=== PATIENT | female | born 1990 ===

== ENCOUNTER 2021-01-29 17:22 | Emergency (ER) | payer SELFPAY ==
--- NOTE | 2021-01-29 18:41 | Emergency Department Report ---
ED Burn/Smoke HPI - General Chief complaint: Burn/Smoke Inhalation Stated complaint: BURNED LT HAND Time Seen by Provider: 01/29/21 18:08 Source: patient Mode of arrival: Ambulatory Limitations: No Limitations - History of Present Illness Initial comments: 30-year-old female presents to the emergency room stating she has a left hand burn after grabbing a curling iron the wrong way. Patient states this happened about 4 PM. Patient reports immediately she ran it through cold water. She states that the pain is better when she keeps it in cold water. Patient reports she is up-to-date on all vaccines. Patient denies any past medical history. Complaint: burn -: This afternoon Time: 16:00 Type of Exposure: electrical (Curling iron) Place: outdoors (At work) Location - Extremities: Left: Hand Severity scale (0 -10): 7 Associated Symptoms: denies other symptoms - Related Data Previous Rx's Medication Instructions Recorded Last Taken Type Acetaminophen/Codeine [Tylenol 1 tab PO Q6H PRN #15 tab 01/29/21 Unknown Rx /Codeine # 3 tab] Ibuprofen [Motrin 800 MG tab] 800 mg PO Q8HR PRN #30 tablet 01/29/21 Unknown Rx Allergies Allergy/AdvReac Type Severity Reaction Status Date / Time No Known Allergies Allergy Unverified 01/29/21 17:39 Burn HPI - History Stated Complaint: BURNED LT HAND Chief Complaint: Burn/Smoke Inhalation Time Seen by Provider: 01/29/21 18:08 - Home Meds and Allergies Home Medications: Previous Rx's Medication Instructions Recorded Last Taken Type Acetaminophen/Codeine [Tylenol 1 tab PO Q6H PRN #15 tab 01/29/21 Unknown Rx /Codeine # 3 tab] Ibuprofen [Motrin 800 MG tab] 800 mg PO Q8HR PRN #30 tablet 01/29/21 Unknown Rx Allergies/Adverse Reactions: Allergies Allergy/AdvReac Type Severity Reaction Status Date / Time No Known Allergies Allergy Unverified 01/29/21 17:39 ED Review of Systems ROS: Stated complaint: BURNED LT HAND Other details as noted in HPI Comment: All other systems reviewed and negative ED Past Medical Hx - Past Medical History Hx Asthma: Yes Additional medical history: HERNIA/ HEART MURMUR - Medications Home Medications: Home Medications Medication Instructions Recorded Confirmed Last Taken Type Acetaminophen/Codeine [Tylenol 1 tab PO Q6H PRN #15 tab 01/29/21 Unknown Rx /Codeine # 3 tab] Ibuprofen [Motrin 800 MG tab] 800 mg PO Q8HR PRN #30 tablet 01/29/21 Unknown Rx ED Physical Exam - General Limitations: No Limitations General appearance: alert, in no apparent distress - Head Head exam: Present: atraumatic, normocephalic - ENT ENT exam: Present: normal external ear exam - Neck Neck exam: Present: normal inspection, full ROM - Respiratory Respiratory exam: Absent: accessory muscle use - Cardiovascular Cardiovascular Exam: Present: regular rate - Expanded Upper Extremity Exam Left Shoulder Exam: Present: normal inspection, full ROM Upper Arm exam: Present: normal inspection, full ROM Elbow exam: Present: normal inspection, full ROM Forearm Wrist exam: Present: normal inspection, full ROM Hand Wrist exam: Present: full ROM, tenderness, other (Partial-thickness burn on palm of hand including fingers, skin intact no blister at this time) Vascular: Present: normal capillary refill - Back Exam Back exam: Present: normal inspection, full ROM - Neurological Exam Neurological exam: Present: alert, oriented X3, normal gait - Psychiatric Psychiatric exam: Present: normal affect, normal mood - Expanded Skin Exam Expanded Distribution of rash: involves palms/soles (Palm), LUE (Hand) Description of rash: Present: tenderness, swelling. Absent: blisters ED Course Vital Signs 01/29/21 17:39 Temperature 99.1 F Pulse Rate 67 Respiratory 16 Rate Blood Pressure 132/95 O2 Sat by Pulse 97 Oximetry ED Medical Decision Making - Medical Decision Making 30-year-old female presents to the emergency room stating she has a left hand burn after grabbing a curling iron the wrong way. Patient states this happened about 4 PM. Patient reports immediately she ran it through cold water. She states that the pain is better when she keeps it in cold water. Patient reports she is up-to-date on all vaccines. Patient denies any past medical history. Patient has a partial-thickness burn to her left hand with skin intact. Discussed with patient will place a dressing pain medication keep the wound clean and dry. Do not burst any blisters that may develop. If noticed any infection such as redness purulent discharge increasing pain to follow-up with your primary care provider or urgent care. Also gave patient information for [place] [facility]. Critical care attestation.: If time is entered above; I have spent that time in minutes in the direct care of this critically ill patient, excluding procedure time. ED Disposition Clinical Impression: Partial thickness burn Disposition: DC- TO HOME OR SELFCARE Is pt being admited?: No Does the pt Need Aspirin: No Condition: Stable Instructions: Second-Degree Burn, Adult Additional Instructions: Please take pain medication as needed. Keep dressing clean and dry. While at home you can let wound get to air. Do not put heat. Follow-up with your primary care provider. If further concern please follow-up at [facility]. Prescriptions: Ibuprofen [Motrin 800 MG tab] 800 mg PO Q8HR PRN #30 tablet PRN Reason: Pain , Severe (7-10) Acetaminophen/Codeine [Tylenol /Codeine # 3 tab] 1 tab PO Q6H PRN #15 tab PRN Reason: Pain , Severe (7-10) Referrals: [facility] [Outside] - 3-5 Days Forms: Work/School Release Form(ED) Time of Disposition: 18:37
[2021-01-29 19:32] VITALS: BP 128/76
== END 2021-01-29 20:14 | disposition home or self-care (01) ==
LOC: ED 17:22
DX: T23.002A Burn of unspecified degree of left hand, unspecified site, initial encounter (principal); J45.909 Unspecified asthma, uncomplicated; Z79.899 Other long term (current) drug therapy; X58.XXXA Exposure to other specified factors, initial encounter; Y93.89 Activity, other specified; Y92.89 Other specified places as the place of occurrence of the external cause; Y99.8 Other external cause status
CPT/HCPCS: 99281

== ENCOUNTER 2021-06-14 14:53 | Emergency (ER) | payer SELFPAY ==
[2021-06-14 15:13] VITALS: BP 130/78
[2021-06-14] MEDS ORDERED: IBUPROFEN 600 MG TAB PO ONE (15:27)
--- NOTE | 2021-06-14 15:54 | XRay Report ---
RIGHT HAND 3 VIEWS 1539 INDICATION: right pinky/right 5th metacarpal COMPARISON: None available. FINDINGS: No fractures or dislocations are seen. No significant arthritic changes are noted. Signer Name: Geraldo Capps MD Signed: 06/14/2021 3:50 PM Workstation Name: [id number]
--- NOTE | 2021-06-14 16:02 | Emergency Department Report ---
ED Upper Extremity Inj HPI - General Chief Complaint: Extremity Injury, Upper Stated Complaint: RIGHT HAND PAIN Time Seen by Provider: 06/14/21 15:17 Source: patient Mode of arrival: Ambulatory Limitations: No Limitations - History of Present Illness Initial Comments: Patient is a 31-year-old female presents emergency room complaints of a right hand injury that occurred yesterday. Patient states that she was playing around with her daughter and went to karate chop her daughter and believes that she hit one of her leg bones. She states since then she has had right hand pain and swelling and pain with movement. She denies ever injuring in the past. She denies any numbness or weakness. No past medical history. No allergies to medications. She denies any possibility of . - Related Data Previous Rx's Medication Instructions Recorded Last Taken Type Acetaminophen/Codeine [Tylenol 1 tab PO Q6H PRN #15 tab 01/29/21 Unknown Rx /Codeine # 3 tab] Ibuprofen [Motrin 800 MG tab] 800 mg PO Q8HR PRN #30 tablet 01/29/21 Unknown Rx Naproxen 500 mg PO BID PRN #20 tablet 06/14/21 Unknown Rx Allergies Allergy/AdvReac Type Severity Reaction Status Date / Time No Known Allergies Allergy Verified 06/14/21 15:12 ED Review of Systems ROS: Stated complaint: RIGHT HAND PAIN Other details as noted in HPI Comment: All other systems reviewed and negative ED Past Medical Hx - Past Medical History Hx Asthma: Yes Additional medical history: HERNIA/ HEART MURMUR - Medications Home Medications: Home Medications Medication Instructions Recorded Confirmed Last Taken Type Acetaminophen/Codeine [Tylenol 1 tab PO Q6H PRN #15 tab 01/29/21 Unknown Rx /Codeine # 3 tab] Ibuprofen [Motrin 800 MG tab] 800 mg PO Q8HR PRN #30 tablet 01/29/21 Unknown Rx Naproxen 500 mg PO BID PRN #20 tablet 06/14/21 Unknown Rx ED Physical Exam - General Limitations: No Limitations General appearance: alert, in no apparent distress - Head Head exam: Present: atraumatic, normocephalic - Eye Eye exam: Present: normal appearance - ENT ENT exam: Present: mucous membranes moist - Extremities Exam Extremities exam: Present: other (ttp and edema present to the right 5th finger MCP and metacarpal, slightly decreased flexion of the right pinky, no deformity, neurovascularly intact) - Neurological Exam Neurological exam: Present: alert, oriented X3 - Psychiatric Psychiatric exam: Present: normal affect, normal mood - Skin Skin exam: Present: warm, dry, intact ED Course Vital Signs 06/14/21 15:11 Temperature 98.8 F Pulse Rate 69 Respiratory 18 Rate Blood Pressure 130/78 O2 Sat by Pulse 98 Oximetry ED Medical Decision Making - Radiology Data Radiology results: report reviewed Ordering Physician: NEEL SIMPSON Date of Service: 06/14/21 Procedure(s): XR hand 3+V RT Accession Number(s): [id number] cc: NEEL SIMPSON Fluoro Time In Minutes: RIGHT HAND 3 VIEWS 1539 INDICATION: right pinky/right 5th metacarpal COMPARISON: None available. FINDINGS: No fractures or dislocations are seen. No significant arthritic changes are noted. Signer Name: Geraldo Capps MD Signed: 06/14/2021 3:50 PM Workstation Name: [email or web address] Transcribed By: Dictated By: Geraldo Capps MD Electronically Authenticated By: Geraldo Capps MD Signed Date/Time: 06/14/21 1550 DD/ 1549 TD/TT: - Medical Decision Making Patient is a 31-year-old female presents emergency room complaints of a right hand injury that occurred yesterday. Patient states that she was playing around with her daughter and went to karate chop her daughter and believes that she hit one of her leg bones. She states since then she has had right hand pain and swelling and pain with movement. She denies ever injuring in the past. She denies any numbness or weakness. No past medical history. No allergies to medications. She denies any possibility of . Vitals are stable. On exam:ttp and edema present to the right 5th finger MCP and metacarpal, slightly decreased flexion of the right pinky, no deformity, neurovascularly intact. X- ray right hand FINDINGS: No fractures or dislocations are seen. No significant arthritic changes are noted. Patient placed in Velcro boxer splint and remain neurovascular intact. Discussed findings with patient. Patient be referred to orthopedic doctor. Advised patient Please take medication as prescribed as needed. May use ice 15 minutes at a time, rest, elevation of the arm. Follow- up with orthopedic doctor. Return to emergency room for any new or worsening symptoms Critical care attestation.: If time is entered above; I have spent that time in minutes in the direct care of this critically ill patient, excluding procedure time. ED Disposition Clinical Impression: Sprain of right hand Qualifiers: Encounter type: initial encounter Qualified Code(s): S63.91XA - Sprain of unspecified part of right wrist and hand, initial encounter Disposition: HOME / SELF CARE / HOMELESS Is pt being admited?: No Does the pt Need Aspirin: No Condition: Stable Instructions: Intermetacarpal Sprain Additional Instructions: Please take medication as prescribed as needed. May use ice 15 minutes at a time, rest, elevation of the arm. Follow-up with orthopedic doctor. Return to emergency room for any new or worsening symptoms Prescriptions: Naproxen 500 mg PO BID PRN #20 tablet PRN Reason: pain Referrals: ZENA LOPEZ MD [Staff Physician] - 3-5 Days [facility] [Provider Group] - 3-5 Days Time of Disposition: 16:02 Print Language: IRISH
== END 2021-06-14 16:43 | disposition home or self-care (01) ==
LOC: ED 14:53
DX: S63.91XA Sprain of unspecified part of right wrist and hand, initial encounter (principal); X58.XXXA Exposure to other specified factors, initial encounter; Y93.89 Activity, other specified; Y92.89 Other specified places as the place of occurrence of the external cause; Y99.8 Other external cause status
CPT/HCPCS: 99283